=== PATIENT | female | born 1945 | race Caucasian/White ===

== ENCOUNTER 2016-10-03 21:32 | Emergency (ER) | payer MEDICARE, OTHER ==
--- NOTE | 2016-10-03 22:14 | ED Physician Documentation ---
PD HPI NVD - Stated complaint Stated Complaint: REACTION MEDS - Chief complaint Chief Complaint: Abd Pain - History obtained from History obtained from: Patient - History of Present Illness Timing - onset: Today (this morning about 30-40 minutes after taking first dose of Sertraline, recent Rx for depression. Had abrupt onset of nausea and then repetitive vomiting. Diarrhea soon after onset. Has continued with symptoms through the day, with some lessening late afternoon, but then marked symptoms again this evening. Feeling generally weak.) Timing - duration: Days (2) Timing - details: Abrupt onset, Still present Associated symptoms: Dizzy, Loss of appetite. No: Fever, Abdominal pain, Hematemesis, Vaginal dc Contributing factors: Other (new Rx with first dose 30-40 minutes prior to onset of symptoms.). No: Sick contact, Bad food, Travel, Recent antibiotics Improved by: No: Eating, Vomiting Worsened by: Eating. No: Moving Similar symptoms before: Has not had sx before Recently seen: Clinic Review of Systems Constitutional: reports: Chills, Myalgias. denies: Fever Nose: denies: Rhinorrhea / runny nose, Congestion Throat: denies: Sore throat Cardiac: denies: Chest pain / pressure, Palpitations Respiratory: denies: Dyspnea, Cough GI: reports: Nausea, Vomiting, Diarrhea. denies: Abdominal Pain, Hematemesis, Bloody / black stool : denies: Dysuria, Frequency Skin: denies: Rash, Lesions Neurologic: reports: Generalized weakness, Near syncope. denies: Focal weakness , Numbness, Syncope Psychiatric: denies: Suicidal, Anxiety Endocrine: denies: Weight loss PD PAST MEDICAL HISTORY - Past Medical History Cardiovascular: None Respiratory: COPD Neuro: None Endocrine/Autoimmune: None GI: None [employer]INTE[employer]CE: Breast cancer : None HEENT: Chronic vision loss Psych: Depression Musculoskeletal: Osteoporosis Derm: None Other Past Medical History: Had Chemotherapy for breast cancer in 1999 - Past Surgical History Past Surgical History: Yes General: Colonoscopy /[employer]INTENANCE: Other HEENT: Cataracts - Present Medications Home Medications: Ambulatory Orders Medication Instructions Recorded Confirmed Alprazolam [Xanax] 0.25 mg PO DAILY 05/19/13 10/03/16 Calcium Carbonate [Calcium] 1,200 mg PO DAILY 05/19/13 10/03/16 Cholecalciferol (Vitamin D3) 1,600 mg PO DAILY 05/19/13 10/03/16 [Vitamin D] Eszopiclone [Lunesta] 1 mg PO DAILY 05/19/13 10/03/16 Lactobacillus Acidophilus 1 each PO DAILY 05/19/13 10/03/16 [Acidophilus] Latanoprost [Xalatan] 2.5 ml OP DAILY 05/19/13 10/03/16 Timolol 0.5% Ophth Drops [Timoptic] 1 drops LEFTEYE DAILY 05/19/13 10/03/16 Ubidecarenone [Co Q-10] 10 mg PO 05/19/13 05/19/13 Vitamin B Complex [B Complex] 1 each PO DAILY 05/19/13 10/03/16 Diphenoxylate/Atropine [Lomotil] 1 each PO QID #20 tablet 10/03/16 Ondansetron Odt [Zofran] 4 mg TL Q6H PRN #15 tablet 10/03/16 - Allergies Allergies/Adverse Reactions: Allergies Allergy/AdvReac Type Severity Reaction Status Date / Time No Known Drug Allergies Allergy Verified 08/17/13 13:12 - Social History Does the pt smoke?: Yes Smoking Status: Current every day smoker Does the pt drink ETOH?: No Does the pt have substance abuse?: Yes - Immunizations Immunizations are current?: No - POLST Patient has POLST: No PD ED PE NORMAL - Vitals Vital signs reviewed: Yes - General General: Alert and oriented X 3, Well developed/nourished, Other (appears uncomfortable due to nausea. ) - HEENT HEENT: PERRL (nonicteric), Ears normal, Pharynx benign - Neck Neck: Supple, no meningeal sign, No adenopathy - Cardiac Cardiac: RRR, No murmur - Respiratory Respiratory: Clear bilaterally - Abdomen Abdomen: Soft, Non tender, Non distended, No organomegaly. 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 No: Normal affect (somewhat flat) Results - Vitals Vitals: Vital Signs - 24 hr 10/03/16 10/03/16 10/04/16 21:38 22:30 00:29 Temperature 35.8 C L Heart Rate 78 82 74 Respiratory 18 16 16 Rate Blood Pressure 146/80 H 138/78 H 143/72 H O2 Saturation 100 97 98 Oxygen O2 Source Room air - Labs Labs: Laboratory Tests 10/03/16 23:15 Sodium 124 L Potassium 3.7 Chloride 91 L Carbon Dioxide 22 Anion Gap 11.0 BUN 10 Creatinine 0.4 Estimated GFR (MDRD) 157 Glucose 113 H Calcium 9.2 Magnesium 1.6 L Total Bilirubin 0.9 AST 26 ALT 21 Alkaline Phosphatase 39 L Total Protein 7.2 Albumin 4.4 Globulin 2.8 Albumin/Globulin Ratio 1.6 Lipase 29 PD MEDICAL DECISION MAKING - ED course Complexity details: re-evaluated patient (Improving symptoms and given IV fluids as well. Would like to try going home. Sent with some Zofran. ), considered differential (onset N/V/D shortly after taking new med. Epocrates lists N/V/D as possible side effects. The timing is certain c/w side effect of the med. She is given IV fluids and meds to improve her here. Will have her hold the Sertraline. ), d/w patient Departure - Departure Clinical Impression: Medication side effects, Hyponatremia, Dehydration Vomiting Qualifiers: Vomiting type: unspecified Vomiting Intractability: non-intractable Nausea presence: with nausea Qualified Code(s): R11.2 - Nausea with vomiting, unspecified Diarrhea Qualifiers: Diarrhea type: unspecified type Qualified Code(s): R19.7 - Diarrhea, unspecified Condition: Stable Record reviewed to determine appropriate education?: Yes Instructions: ED Diet Vomiting Diarrhea Follow-Up: Luis Melara MD [Primary Care Provider] - Prescriptions: Diphenoxylate/Atropine [Lomotil] 1 each PO QID #20 tablet Ondansetron Odt [Zofran] 4 mg TL Q6H PRN #15 tablet PRN Reason: Nausea / Vomiting Comments: Small frequent fluids. Zofran for nausea as needed, Lomotil for diarrhea as needed. Hold the Sertraline. Follow up PMD.
[2016-10-03] MEDS ORDERED: DIPHENOX/ATROPINE 2.5/0.025 MG TABLET PO STA (22:32)
[2016-10-03] MEDS ORDERED: SODIUM CHLORIDE 0.9% 1,000 ML IV ONE ×2 (22:32→22:33)
[2016-10-03] MEDS ORDERED: ONDANSETRON 4 MG/2 ML VIAL IVP STA (22:32)
[2016-10-03] MEDS ORDERED: ONDANSETRON 4 MG/2 ML VIAL ONE (23:26)
[2016-10-03] MEDS ORDERED: DIPHENOX/ATROPINE 2.5/0.025 MG TABLET PO ONE ×2 (23:27→23:34)
[2016-10-03 23:34] LABS: ALBUMIN/GLOBULIN RATIO 1.6 (1.0-2.2); BILIRUBIN,TOTAL 0.9 mg/dL (0.2-1.0); CALCIUM 9.2 mg/dL (8.5-10.3); CREATININE 0.4 mg/dL (0.4-1.0); MAGNESIUM 1.6 mg/dL (1.7-2.8); POTASSIUM 3.7 mmol/L (3.5-5.0); TOTAL PROTEIN 7.2 g/dL (6.7-8.2)
[2016-10-03] MEDS ORDERED: ONDANSETRON ODT 4 MG Prepack 2 TL PRN (23:45)
[2016-10-04] MEDS ORDERED: ONDANSETRON 4 MG/2 ML VIAL IVP STA (00:27)
[2016-10-04] MEDS ORDERED: ONDANSETRON ODT 4 MG Prepack 2 TL ONE (00:27)
[2016-10-04] MEDS ORDERED: ONDANSETRON 4 MG/2 ML VIAL ONE (00:31)
[2016-10-04 01:27] VITALS: BP 134/72
== END 2016-10-04 01:42 | disposition home or self-care (01) ==
LOC: ED 21:32
DX: R11.2 Nausea with vomiting, unspecified (principal); R19.7 Diarrhea, unspecified; T43.225A Adverse effect of selective serotonin reuptake inhibitors, initial encounter; E87.1 Hypo-osmolality and hyponatremia; E86.0 Dehydration; F17.200 Nicotine dependence, unspecified, uncomplicated; Z85.3 Personal history of malignant neoplasm of breast
CPT/HCPCS: 36415; 80053; 83690; 83735; 96374; 96376; 99283; 99284; A9270

== ENCOUNTER 2016-10-07 14:06 | Outpatient (CLI) | payer MEDICARE, OTHER ==
[2016-10-07 14:34] LABS: CALCIUM 9.3 mg/dL (8.5-10.3); CREATININE 0.5 mg/dL (0.4-1.0); POTASSIUM 4.2 mmol/L (3.5-5.0)
== END 2016-10-07 14:07 | disposition home or self-care (01) ==
LOC: LAB 14:06
PROVIDERS: ATTEND Family Medicine
DX: E87.1 Hypo-osmolality and hyponatremia (principal)
CPT/HCPCS: 36415; 80048

== ENCOUNTER 2017-01-16 09:43 | Day surgery (SDC) | payer MEDICARE, OTHER ==
[2017-01-16] MEDS ORDERED: LACTATED RINGERS 1,000 ML IV ONE (10:30)
--- NOTE | 2017-01-16 10:54 | HISTORY & PHYSICAL EXAMINATION ---
HPI - History of Present Illness HPI Comment/Other: Patient here for colonoscopy for family history of colon cancer in mother and father above the age of 70. Current Meds: TIMOLOL MALEATE 0.5 % SOLG (TIMOLOL MALEATE) Instill one drop both eyes twice daily FOSAMAX 70 MG TABS (ALENDRONATE SODIUM) Take one tablet by mouth weekly; take on empty stomach with water and remain upright after taking medication for 30 minutes; eat breakfast; take other medications B COMPLEX TABS (B COMPLEX VITAMINS) Take one tablet once daily LUNESTA 2 MG TABS (ESZOPICLONE) Take one tablet by mouth at bedtime as needed for sleep ALPRAZOLAM 0.25 MG TABS (ALPRAZOLAM) One tablet 3 times daily as needed for anxiety XALATAN 0.005 % SOLN (LATANOPROST) use QD VITAMIN D 1000 UNIT TABS (CHOLECALCIFEROL) once daily for vit D deficiency CALTRATE 600 PLUS-VIT D TABS (CALCIUM-VITAMIN D TABS) one po twice a day Allergies: ZOLOFT (Critical) Past Medical History: Reviewed history from 11/15/2008 and no changes required: R/temporal headaches that are not accompanied with photophobia, phonophobia, emesis or as her previous hx of migraines. L/breast cancer w/lumpectomy in 1999. lymph nodes negative. Tx'd with [address] Dr[address] Landry. Also received some radiation therapy early on. Since chemo has had problems with chronic tinnitus, chronic leukopenia w/white counts around 3000 w/some mild anemia. Required neupogen during chemo, but not since. Glaucoma and is on drops. Insomnia that patient associates w/when counts are low or if feeling depressed. Never been suicidal. Snores but no apnea. Childbirth Tobacco user and has quit several times but continues to start up again. Negative colonoscopy [address] Gardner Emphysema Depression Anxiety Panic Attacks Claustrophobia Past Surgical History: Reviewed history from 11/15/2008 and no changes required: L/lumpectomy L/rotator cuff arthroscopic repair Family History Summary: Reviewed history Last on 10/31/2016 and no changes required:11/26/2016 Mother (biol.) - Has a mother - Entered On: 04/12/2014 Mother (biol.) - Has Family History of Colon Cancer - Entered On: 11/26/2016 Father () - Has Family History of Colon Cancer - Entered On: 11/26/2016 General Comments - FH: Father: colon cancer Mother: colon cancer Siblings: grandfather with colon cancer, grandfather with esophageal cancer, 1 aunt with breast cancer Social History: Reviewed history from 01/10/2009 and no changes required: Marital Status: Children: 2 Occupation: no service, various occupations. Risk Factors: Smoked Tobacco Use: Current every day smoker Cigarettes: Yes -- 1/2 pack(s) per day, Year started: 1967 Counseled to quit/cut down: yes Drug use: no Caffeine use: 0 drinks per day Alcohol use: no Exercise: no Previous Tobacco Use: Signed On - 02/19/2016 Smoked Tobacco Use: Current every day smoker Cigarettes: Yes -- 1/2 pack(s) per day, Year started: 1966 Counseled to quit/cut down: yes Drug use: no Caffeine use: 0 drinks per day Problems were reviewed with the patient during this visit. Medications were reviewed with the patient during this visit. Allergies were reviewed with the patient during this visit. Allergies: ZOLOFT (Critical) Physical Exam General: well developed, well nourished, in no acute distress Lungs: clear bilaterally to A & P Heart: regular rate and rhythm, S1, S2 without murmurs, rubs, gallops, or clicks Abdomen: bowel sounds positive; abdomen soft and non-tender without masses, organomegaly, or hernias noted Pulses: pulses normal in all 4 extremities Extremities: no clubbing, cyanosis, edema, or deformity noted with normal full range of motion of all joints Cervical Nodes: no significant adenopathy Psych: alert and cooperative; normal mood and affect; normal attention span and concentration Impression & Recommendations: Problem # 1: Screening for malignant neoplasm, colon (ICD-V76.51) (QMD56-D41.11 ) Patient vomited second dose of prep but had multiple clear BM's this am. Will attempt colonoscopy but if visualization is poor will have to repeat. PMH/PSH - Past Medical History Cardiovascular: positive: None Respiratory: positive: None, COPD Neuro: positive: None Endocrine/Autoimmune: positive: None GI: positive: None INSIDE SALES LEAD: positive: Breast cancer : positive: None HEENT: positive: Glaucoma Psych: positive: Depression, Anxiety Musculoskeletal: positive: Osteoporosis Derm: positive: None MRSA Hx?: No - Past Surgical History General: positive: Colonoscopy Ortho: positive: Arthroscopic surgery /INSIDE SALES LEAD: positive: Other HEENT: positive: Cataracts Social & Family Hx - Social History Does the pt smoke?: Yes Smoking Status: Current every day smoker Does the pt drink ETOH?: No Does the pt have substance abuse?: Yes - POLST Patient has POLST: No Meds/Allgy - Home Medications Home Medications: Ambulatory Orders Medication Instructions Recorded Confirmed Alprazolam [Xanax] 0.25 mg PO DAILY 05/19/13 10/03/16 Calcium Carbonate [Calcium] 1,200 mg PO DAILY 05/19/13 10/03/16 Cholecalciferol (Vitamin D3) 1,600 mg PO DAILY 05/19/13 10/03/16 [Vitamin D] Eszopiclone [Lunesta] 1 mg PO DAILY 05/19/13 10/03/16 Lactobacillus Acidophilus 1 each PO DAILY 05/19/13 10/03/16 [Acidophilus] Latanoprost [Xalatan] 2.5 ml OP DAILY 05/19/13 10/03/16 Timolol 0.5% Ophth Drops [Timoptic] 1 drops LEFTEYE DAILY 05/19/13 10/03/16 Ubidecarenone [Co Q-10] 10 mg PO 05/19/13 05/19/13 Vitamin B Complex [B Complex] 1 each PO DAILY 05/19/13 10/03/16 Diphenoxylate/Atropine [Lomotil] 1 each PO QID #20 tablet 10/03/16 Ondansetron Odt [Zofran] 4 mg TL Q6H PRN #15 tablet 10/03/16 - Allergies Allergies/Adverse Reactions: Allergies Allergy/AdvReac Type Severity Reaction Status Date / Time No Known Drug Allergies Allergy Verified 08/17/13 13:12 Exam - Vital Signs Vital Signs: Vital Signs x48h Temp Pulse Resp BP Pulse Ox 01/16/17 10:05 36.6 C 105 H 16 135/67 H 100
[2017-01-16] MEDS ORDERED: fentaNYL 100 MCG/2 ML VIAL IVP ONE (11:00)
[2017-01-16] MEDS ORDERED: MIDAZOLAM 2 MG/2 ML VIAL IVP ONE (11:00)
[2017-01-16 12:27] VITALS: BP 110/82
== END 2017-01-16 09:44 | disposition home or self-care (01) ==
LOC: SDS 09:43
PROVIDERS: ATTEND Surgery
PROC: 0DJD8ZZ Inspection of Lower Intestinal Tract, Via Natural or Artificial Opening Endoscopic (ICD-10-PCS; principal; 2017-01-16 11:00)
DX: Z12.11 Encounter for screening for malignant neoplasm of colon (principal); Z80.0 Family history of malignant neoplasm of digestive organs; J43.9 Emphysema, unspecified; F17.210 Nicotine dependence, cigarettes, uncomplicated; F32.9 Major depressive disorder, single episode, unspecified; F41.9 Anxiety disorder, unspecified
CPT/HCPCS: G0105; J7120

== ENCOUNTER 2017-01-23 13:17 | Outpatient (CLI) | payer MEDICARE, OTHER ==
[2017-01-23 14:02] LABS: BASOPHILS % (AUTO) 1.1 %; EOSINOPHILS # (AUTO) 0.1 10^3/uL (0.0-0.7); EOSINOPHILS % (AUTO) 3.7 %; HCT - HEMATOCRIT 39.8 % (37.0-47.0); HGB - HEMOGLOBIN 13.6 g/dL (12.0-16.0); LYMPHOCYTES # (AUTO) 1.6 10^3/uL (1.5-3.5); LYMPHOCYTES % (AUTO) 39.4 %; MEAN CORPUSCULAR HEMOGLOBIN 34.9 pg (27.0-31.0); MEAN CORPUSCULAR HGB CONC 34.2 g/dL (32.0-36.0); MEAN CORPUSCULAR VOLUME 102.3 fL (81.0-99.0); MEAN PLATELET VOLUME 7.6 fL (7.9-10.8); MONOCYTES # (AUTO) 0.4 10^3/uL (0.0-1.0); MONOCYTES % (AUTO) 10.7 %; NEUTROPHILS # (AUTO) 1.8 10^3/uL (1.5-6.6); NEUTROPHILS % (AUTO) 45.1 %; RED BLOOD COUNT 3.89 10^6/uL (4.20-5.40); RED CELL DISTRIBUTION WIDTH 12.6 % (12.0-15.0)
[2017-01-23 14:38] LABS: ALBUMIN/GLOBULIN RATIO 1.3 (1.0-2.2); BILIRUBIN,TOTAL 0.6 mg/dL (0.2-1.0); CREATININE 0.6 mg/dL (0.4-1.0); TOTAL PROTEIN 6.8 g/dL (6.7-8.2)
== END 2017-01-23 13:18 | disposition home or self-care (01) ==
LOC: LAB 13:17
PROVIDERS: ATTEND Family Medicine
DX: E87.1 Hypo-osmolality and hyponatremia (principal); J44.9 Chronic obstructive pulmonary disease, unspecified; Z72.0 Tobacco use; F32.9 Major depressive disorder, single episode, unspecified
CPT/HCPCS: 36415; 80053; 85025

== ENCOUNTER 2017-07-18 13:20 | Outpatient (CLI) | payer MEDICARE, OTHER ==
[2017-07-18 13:36] LABS: BASOPHILS % (AUTO) 0.6 %; EOSINOPHILS # (AUTO) 0.1 10^3/uL (0.0-0.7); EOSINOPHILS % (AUTO) 2.7 %; HGB - HEMOGLOBIN 14.1 g/dL (12.0-16.0); LYMPHOCYTES # (AUTO) 1.3 10^3/uL (1.5-3.5); LYMPHOCYTES % (AUTO) 34.1 %; MEAN CORPUSCULAR HEMOGLOBIN 35.2 pg (27.0-31.0); MEAN CORPUSCULAR HGB CONC 35.2 g/dL (32.0-36.0); MEAN CORPUSCULAR VOLUME 99.9 fL (81.0-99.0); MEAN PLATELET VOLUME 7.2 fL (7.9-10.8); MONOCYTES # (AUTO) 0.4 10^3/uL (0.0-1.0); NEUTROPHILS # (AUTO) 1.9 10^3/uL (1.5-6.6); NEUTROPHILS % (AUTO) 50.6 %; PLT - PLATELET COUNT 285 10^3/uL (130-450); RED CELL DISTRIBUTION WIDTH 12.3 % (12.0-15.0); WHITE BLOOD COUNT 3.7 x10^3/uL (4.8-10.8)
[2017-07-18 14:01] LABS: ALBUMIN 4.2 g/dL (3.2-5.5); ALBUMIN/GLOBULIN RATIO 1.6 (1.0-2.2); ALKALINE PHOSPHATASE 36 IU/L (42-121); ALT ALANINE AMINOTRANSFERASE 16 IU/L (10-60); AST ASPARTATE AMINOTRANSFERASE 24 IU/L (10-42); BILIRUBIN,TOTAL 0.7 mg/dL (0.2-1.0); BUN - BLOOD UREA NITROGEN 8 mg/dL (6-20); CARBON DIOXIDE - CO2 28 mmol/L (21-32); CHLORIDE 94 mmol/L (101-111); CHOL/HDL RATIO 2.5 (<4.4); CHOLESTEROL 225 mg/dL; CREATININE 0.5 mg/dL (0.4-1.0); GFR - MDRD 121 (>89); GLUCOSE 101 mg/dL (70-100); HDL CHOLESTEROL 89 mg/dL; LDL CHOLESTEROL,CALCULATED 122 mg/dL; LDL/HDL RATIO 1.4 (<4.4); SODIUM 129 mmol/L (135-145); TOTAL PROTEIN 6.9 g/dL (6.7-8.2); VLDL CHOLESTEROL 14 mg/dL
== END 2017-07-18 13:21 | disposition home or self-care (01) ==
LOC: LAB 13:20
PROVIDERS: ATTEND Family Medicine
DX: E55.9 Vitamin D deficiency, unspecified (principal); E78.5 Hyperlipidemia, unspecified
CPT/HCPCS: 36415; 80053; 80061; 82306; 83721; 85025

== ENCOUNTER 2017-08-20 12:50 | Outpatient (CLI) | payer MEDICARE, OTHER ==
--- NOTE | 2017-08-21 15:05 | Mammography Report ---
DIGITAL SCREENING MAMMOGRAM: 08/20/2017 CLINICAL INDICATION: A 72-year-old with personal history of left breast cancer, status post lumpectomy and chemoradiation. COMPARISON: 06/2015, 06/2014, 05/2013, 03/2012, 02/2011, 02/2010. TECHNIQUE: Routine CC and MLO projections were obtained of the breasts. FINDINGS: The breasts demonstrate heterogeneously dense fibroglandular parenchyma bilaterally. Coarse and punctate, typically benign calcifications are present. Postoperative and posttreatment changes in the left breast are stable. No suspicious masses, clustered microcalcifications, or regions of architectural distortion are identified. IMPRESSION: BENIGN FINDINGS. RECOMMENDATION: Routine annual screening unless otherwise clinically indicated. BIRADS CATEGORY 2 - BENIGN FINDINGS. STANDARD QUALIFYING STATEMENTS: 1. This examination was reviewed with the aid of Computer-Aided Detection (CAD). 2. A negative or benign imaging report should not delay biopsy if clinically suspicious findings are present. Consider surgical consultation if warranted. More than 5% of cancers are not identified by imaging. 3. Dense breasts may obscure an underlying neoplasm. TD: 08/21/2017 15:04
== END 2017-08-20 12:51 | disposition home or self-care (01) ==
LOC: DI 12:50
PROVIDERS: ATTEND Family Medicine
DX: Z12.31 Encounter for screening mammogram for malignant neoplasm of breast (principal); Z85.3 Personal history of malignant neoplasm of breast
CPT/HCPCS: 77067

== ENCOUNTER 2017-08-20 12:50 | Outpatient (CLI) | payer MEDICARE, OTHER ==
--- NOTE | 2017-08-21 15:42 | DEXA Report ---
DEXA SCAN: 08/20/2017 CLINICAL INDICATION: Osteoporosis. TECHNIQUE: Dual energy x-ray absorptiometry (DXA) was performed on a [employer] system. Regions measured are the AP spine, femoral neck, and, if needed, forearm. COMPARISON: None. In accordance with the International Society for Clinical Densitometry (ISCD) guidelines, data from previous exams may be reanalyzed using current recommendations and techniques. This is done to allow a more accurate basis for comparison with the current study. FINDINGS Data for the lumbar spine is as follows: REGION BMD (g/cm/cm) T-SCORE Z-SCORE L1 0.630 -4.2 -1.9 L2 0.670 -4.4 -2.1 L3 0.788 -3.4 -1.1 L4 0.879 -2.7 -0.4 L1-L4 0.749 -3.6 -1.3 NOTE: All evaluable vertebrae are used for classification. Data for the hip is as follows: REGION BMD (g/cm/cm) T-SCORE Z-SCORE Neck 0.676 -2.6 -0.4 TOTAL 0.627 -3.0 -1.0 NOTE: The femoral neck or total proximal femur, whichever is lowest, is used for classification. IMPRESSION WHO CLASSIFICATION BASED ON THE INTERNATIONAL REFERENCE STANDARD IS OSTEOPOROSIS. FRACTURE RISK IS HIGH. RECOMMENDATION: Patients with diagnosis of osteoporosis or osteopenia should have regular bone mineral density assessment. For those eligible for Medicare, routine testing is allowed once every 2 years. Testing frequency can be increased for patients who have rapidly progressing disease or for those who are receiving medical therapy to restore bone mass. COMMENT World Health Organization (WHO) definitions for osteoporosis and osteopenia: NORMAL BMD: T-score at 1.0 or higher, fracture risk is low. OSTEOPENIA BMD: T-score between 1.0 and -2.5, fracture risk is increased. OSTEOPOROSIS BMD: T-score at 2.5 or lower, fracture risk high. National Osteoporosis Foundation recommends: 1. Obtain adequate dietary calcium (at least 1200 mg per day) and vitamin D (400 -800 international units per day). 2. Participate, as appropriate, in regular weightbearing and muscle- strengthening exercise. 3. Avoid tobacco use and reduce alcohol and caffeine intake. 4. For more detailed information see the website at www.NOF.org. TD: 08/20/2017 14:58 MTDD
== END 2017-08-20 12:51 | disposition home or self-care (01) ==
LOC: DI 12:50
PROVIDERS: ATTEND Family Medicine
DX: M81.0 Age-related osteoporosis without current pathological fracture (principal)
CPT/HCPCS: 77080

== ENCOUNTER 2018-07-17 13:32 | Outpatient (CLI) | payer MEDICARE, OTHER ==
[2018-07-17 14:10] LABS: BASOPHILS % (AUTO) 0.6 %; EOSINOPHILS # (AUTO) 0.1 10^3/uL (0.0-0.7); EOSINOPHILS % (AUTO) 2.7 %; HGB - HEMOGLOBIN 13.8 g/dL (12.0-16.0); LYMPHOCYTES # (AUTO) 1.4 10^3/uL (1.5-3.5); MEAN CORPUSCULAR HEMOGLOBIN 35.6 pg (27.0-31.0); MEAN CORPUSCULAR HGB CONC 35.3 g/dL (32.0-36.0); MEAN PLATELET VOLUME 7.7 fL (7.9-10.8); MONOCYTES # (AUTO) 0.4 10^3/uL (0.0-1.0); MONOCYTES % (AUTO) 9.3 %; NEUTROPHILS # (AUTO) 2.4 10^3/uL (1.5-6.6); NEUTROPHILS % (AUTO) 55.4 %; PLT - PLATELET COUNT 292 10^3/uL (130-450); RED BLOOD COUNT 3.88 10^6/uL (4.20-5.40); RED CELL DISTRIBUTION WIDTH 12.4 % (12.0-15.0); WHITE BLOOD COUNT 4.3 x10^3/uL (4.8-10.8)
[2018-07-17 14:13] LABS: ALBUMIN 4.2 g/dL (3.2-5.5); ALBUMIN/GLOBULIN RATIO 1.4 (1.0-2.2); ALKALINE PHOSPHATASE 38 IU/L (42-121); ALT ALANINE AMINOTRANSFERASE 15 IU/L (10-60); AST ASPARTATE AMINOTRANSFERASE 19 IU/L (10-42); BILIRUBIN,TOTAL 0.6 mg/dL (0.2-1.0); BUN - BLOOD UREA NITROGEN 8 mg/dL (6-20); CALCIUM 9.1 mg/dL (8.5-10.3); CARBON DIOXIDE - CO2 28 mmol/L (21-32); CHLORIDE 98 mmol/L (101-111); CHOL/HDL RATIO 2.5 (<4.4); CHOLESTEROL 229 mg/dL; CREATININE 0.6 mg/dL (0.4-1.0); GFR - MDRD 98 (>89); GLUCOSE 99 mg/dL (70-100); HDL CHOLESTEROL 92 mg/dL; LDL CHOLESTEROL,CALCULATED 117 mg/dL; LDL/HDL RATIO 1.3 (<4.4); SODIUM 133 mmol/L (135-145); TOTAL PROTEIN 7.2 g/dL (6.7-8.2); VLDL CHOLESTEROL 20 mg/dL
== END 2018-07-17 13:33 | disposition home or self-care (01) ==
LOC: LAB 13:32
PROVIDERS: ATTEND Family Medicine
DX: E55.9 Vitamin D deficiency, unspecified (principal); E78.5 Hyperlipidemia, unspecified
CPT/HCPCS: 36415; 80053; 80061; 82306; 83721; 85025

== ENCOUNTER 2018-08-15 12:20 | Outpatient (CLI) | payer MEDICARE, OTHER ==
--- NOTE | 2018-08-16 10:11 | Ultrasound Report ---
Reason: RUQ PAIN Procedure Date: 08/15/2018 Accession Number: [id number] / [id number] Procedure: US - Abdomen Complete CPT Code: FULL RESULT: EXAM: ABDOMEN ULTRASOUND EXAM DATE: 08/15/2018 01:00 PM. CLINICAL HISTORY: Right upper quadrant chronic abdominal pain. COMPARISON: None. TECHNIQUE: Real-time scanning was performed with static images obtained. FINDINGS: Liver: Normal in size and echotexture. 13.7 cm. Main portal vein flow: Hepatopetal. Gallbladder: Normal. No stones, wall thickening, or sonographic Mcallister's sign. Biliary System: Common bile duct measures 6 mm. No intrahepatic or extrahepatic ductal dilatation. Pancreas: Visualized portion is unremarkable. Kidneys: Right: 10.0 cm longitudinally. Normal. No contour-deforming mass, stones, or hydronephrosis. A mid renal cyst measures 1.3 cm. Left: 10.4 cm longitudinally. Normal. No contour-deforming mass, stones, or hydronephrosis. Spleen: 6.8 cm. Normal in size and echotexture. Aorta and Inferior Vena Cava: No aneurysm identified. Calcific plaque noted. Other: None. IMPRESSION: No acute disease identified. Normal gallbladder. RADIA
== END 2018-08-15 12:21 | disposition home or self-care (01) ==
LOC: DI 12:20
PROVIDERS: ATTEND Family Medicine
DX: R10.11 Right upper quadrant pain (principal)
CPT/HCPCS: 76700

== ENCOUNTER 2018-09-04 13:39 | Outpatient (CLI) | payer MEDICARE, OTHER ==
--- NOTE | 2018-09-07 08:52 | Mammography Report ---
Reason: SCREENING MAMMOGRAM FOR BREAST CANCER Procedure Date: 09/04/2018 Accession Number: [id number] / [id number] Procedure: FORREST - Screening Mammo w/[facility] CPT Code: FULL RESULT: EXAM: Screening Mammo w/[facility] DATE: 09/04/2018 2:15 PM CLINICAL HISTORY: Screening encounter. Personal history of left breast cancer status post lumpectomy and chemoradiation in 1998. TECHNIQUE: (B) - Bilateral CC and MLO views were obtained. COMPARISON: 08/10/2017 through 05/07/2013. PARENCHYMAL PATTERN: (D) - The breast(s) demonstrate(s) heterogeneously dense fibroglandular parenchyma. FINDINGS: Postsurgical and posttreatment changes in the left breast appear stable. Coarse typically benign calcifications are seen in the right breast. There are no suspicious masses, calcifications, or areas of distortion. IMPRESSION: Benign findings. BI-RADS category 2. RECOMMENDATION: (ANNUAL) - Recommend routine annual screening mammography. BI-RADS CATEGORY: (2) - Benign Findings. STANDARD QUALIFYING STATEMENTS: 1. This examination was not reviewed with the aid of Computer-Aided Detection (CAD). 2. A negative or benign imaging report should not preclude biopsy if clinically suspicious findings are present. 3. Dense breasts may obscure an underlying neoplasm. 4. This examination was reviewed with the aid of 3D breast imaging (tomosynthesis).
== END 2018-09-04 13:40 | disposition home or self-care (01) ==
LOC: DI 13:39
PROVIDERS: ATTEND Family Medicine
DX: Z12.31 Encounter for screening mammogram for malignant neoplasm of breast (principal); Z85.3 Personal history of malignant neoplasm of breast
CPT/HCPCS: 77063; 77067

== ENCOUNTER 2019-11-04 16:12 | Outpatient (CLI) | payer MEDICARE, OTHER ==
--- NOTE | 2019-11-04 17:32 | MRI Report ---
PROCEDURE: Pelvis W/O INDICATIONS: STRAIN OF MSL/FASC/TND POST GRP AT THI LEV, UNSP T TECHNIQUE: Noncontrast coronal T1 spin echo and STIR through the bony pelvis. Sagittal T2 FSE with fat saturati on, oblique axial PD FSE and T2 FSE with fat saturation through the symphysis pubis. COMPARISON: None. FINDINGS: Image quality: Excellent. Tendons and muscles: No pelvic muscle or tendon signal abnormality is seen. The gluteus medius and mi nimus tendons appear intact, without associated muscle atrophy. The iliopsoas tendon appears intact, without adjacent bursal fluid collections. The origin of the hamstring tendons are intact at the is chial tuberosities. Bony structures: There is bilateral mild hip joint osteoarthritis with joint space narrowing. No evid ence of avascular necrosis of femoral head. No pelvic or hip fracture. No dislocation. Lobulated cyst ic area involving lower sacrum measures 1.5 x 1.2 cm x 1.5 in size is seen which may represent perine ural cyst incompletely evaluated on this study. Soft tissues: No gross pelvic soft tissue abnormality. No free fluid is seen. No evidence of bowel ob struction. Bladder wall thickness is normal. IMPRESSION: 1. No signal abnormality is seen in pelvic muscle or soft tissue. 2. Mild bilateral hip joint osteoarthritis. No evidence of avascular necrosis of femoral head. 3. Cystic area involving lower sacrum as described above, incompletely evaluated on this study and ma y represent perineural cyst. Reviewed by: Madhu Hogan MD on 11/04/2019 5:31 PM PDT Approved by: Madhu Hogan MD on 11/04/2019 5:31 PM PDT Station ID: [id number]
== END 2019-11-04 16:13 | disposition home or self-care (01) ==
LOC: DI 16:12
PROVIDERS: ATTEND Orthopaedic Surgery
DX: M16.0 Bilateral primary osteoarthritis of hip (principal); R93.89 Abnormal findings on diagnostic imaging of other specified body structures
CPT/HCPCS: 72195

== ENCOUNTER 2019-11-16 13:58 | Outpatient (CLI) | payer MEDICARE, OTHER ==
--- NOTE | 2019-11-16 17:36 | MRI Report ---
PROCEDURE: Pelvis W/O INDICATIONS: PAIN TECHNIQUE: Noncontrast coronal T1 spin echo and STIR through the bony pelvis. Sagittal T2 FSE with fat saturati on, oblique axial PD FSE and T2 FSE with fat saturation through the symphysis pubis. COMPARISON: 11/04/2019. FINDINGS: Image quality: Excellent. Tendons and muscles: No pelvic muscle or tendon signal abnormality is seen. The gluteus medius and mi nimus tendons appear intact, without associated muscle atrophy. The iliopsoas tendon appears intact, without adjacent bursal fluid collections. The origin of the hamstring tendons are intact at the is chial tuberosities. Bony structures: There is bilateral mild hip joint osteoarthritis with joint space narrowing. No evid ence of avascular necrosis of femoral head. No pelvic or hip fracture. No dislocation. Multiple bilat eral perineural cysts are seen in bilateral sacral region measures up to 1 x 1.7 x 2.2 cm in size ant erior to the distal sacrum slightly to the right of midline. Soft tissues: No gross pelvic soft tissue abnormality. No free fluid is seen. No evidence of bowel ob struction. Bladder wall thickness is normal. IMPRESSION: 1. Previously described cystic areas partially evaluated in visualized portion of the sacrum represen ts bilateral sacral perineural cysts and measures up to 1 x 1.7 x 2.2 cm in size. 2. No signal abnormality is seen in pelvic muscle or soft tissue. 3. Mild bilateral hip joint osteoarthritis. No evidence of avascular necrosis of femoral head. Reviewed by: Madhu Hogan MD on 11/16/2019 5:35 PM PDT Approved by: Madhu Hogan MD on 11/16/2019 5:35 PM PDT Station ID: [id number]
== END 2019-11-16 13:59 | disposition home or self-care (01) ==
LOC: DI 13:58
PROVIDERS: ATTEND Orthopaedic Surgery
DX: M71.38 Other bursal cyst, other site (principal); M16.0 Bilateral primary osteoarthritis of hip
CPT/HCPCS: 72195

== ENCOUNTER 2020-07-19 13:31 | Outpatient (CLI) | payer MEDICARE, OTHER ==
[2020-07-19 13:53] LABS: BASOPHILS % (AUTO) 0.7 %; EOSINOPHILS # (AUTO) 0.1 10^3/uL (0.0-0.7); EOSINOPHILS % (AUTO) 1.5 %; HCT - HEMATOCRIT 41.4 % (37.0-47.0); HGB - HEMOGLOBIN 14.5 g/dL (12.0-16.0); LYMPHOCYTES # (AUTO) 1.2 10^3/uL (1.5-3.5); LYMPHOCYTES % (AUTO) 25.8 %; MEAN CORPUSCULAR HEMOGLOBIN 35.5 pg (27.0-31.0); MEAN CORPUSCULAR VOLUME 101.2 fL (81.0-99.0); MEAN PLATELET VOLUME 9.6 fL (7.9-10.8); MONOCYTES # (AUTO) 0.4 10^3/uL (0.0-1.0); MONOCYTES % (AUTO) 9.5 %; NEUTROPHILS # (AUTO) 2.8 10^3/uL (1.5-6.6); NEUTROPHILS % (AUTO) 62.3 %; PLT - PLATELET COUNT 298 10^3/uL (130-450); RED BLOOD COUNT 4.09 10^6/uL (4.20-5.40); RED CELL DISTRIBUTION WIDTH 11.5 % (12.0-15.0); WHITE BLOOD COUNT 4.5 x10^3/uL (4.8-10.8)
[2020-07-19 14:09] LABS: ALBUMIN 4.2 g/dL (3.2-5.5); ALBUMIN/GLOBULIN RATIO 1.4 (1.0-2.2); ALKALINE PHOSPHATASE 41 IU/L (42-121); ALT ALANINE AMINOTRANSFERASE 20 IU/L (10-60); AST ASPARTATE AMINOTRANSFERASE 26 IU/L (10-42); BILIRUBIN,TOTAL 0.8 mg/dL (0.2-1.0); BUN - BLOOD UREA NITROGEN 14 mg/dL (6-20); CALCIUM 9.6 mg/dL (8.5-10.3); CARBON DIOXIDE - CO2 26 mmol/L (21-32); CHLORIDE 91 mmol/L (101-111); CHOL/HDL RATIO 2.5 (<4.4); CHOLESTEROL 231 mg/dL; CREATININE 0.6 mg/dL (0.4-1.0); GFR - MDRD 97 (>89); GLUCOSE 110 mg/dL (70-100); HDL CHOLESTEROL 91 mg/dL; LDL CHOLESTEROL,CALCULATED 125 mg/dL; LDL/HDL RATIO 1.4 (<4.4); POTASSIUM 4.1 mmol/L (3.5-5.0); SODIUM 131 mmol/L (135-145); TOTAL PROTEIN 7.1 g/dL (6.7-8.2); TRIGLYCERIDES 76 mg/dL; VLDL CHOLESTEROL 15 mg/dL
== END 2020-07-19 13:32 | disposition home or self-care (01) ==
LOC: LAB 13:31
PROVIDERS: ATTEND Family Medicine
DX: E78.5 Hyperlipidemia, unspecified (principal)
CPT/HCPCS: 36415; 80053; 80061; 83721; 85025

== ENCOUNTER 2020-09-04 10:51 | Outpatient (CLI) | payer MEDICARE, OTHER ==
--- NOTE | 2020-09-05 13:19 | Mammography Report ---
BILATERAL DIGITAL SCREENING MAMMOGRAM 3D/2D: 09/04/2020 CLINICAL: Routine screening. Comparison is made to exams dated: 09/04/2018 mammogram, 08/20/2017 mammogram, 06/15/2014 mammogram, 06/07 mammogram, and 05/07/2013 mammogram - [facility]. The tissue of both breasts i s predominantly fatty. No significant masses, calcifications, or other findings are seen in either breast. There has been no significant interval change. IMPRESSION: NEGATIVE There is no mammographic evidence of malignancy. A 1 year screening mammogram is recommended. This exam was interpreted at Station ID: [id number]. NOTE: For mammograms, a report in lay terms will be sent to the patient. Approximately 15% of breast malignancies will not be visualized mammographically. In the management of a palpable breast mass, a negative mammogram must not discourage biopsy of a clinically suspicious lesion. Electronically Signed By: Tu Armijo M.D., jr/penrad:09/04/2020 12:02:11 ACR BI-RADS Category 1: Negative 3341F PARENCHYMAL PATTERN: (F) - The breast(s) demonstrate(s) diffuse fatty replacement. BI-RADS CATEGORY: (1) - 1 RECOMMENDATION: (ANNUAL) - Recommend routine annual screening mammography. [id number] 1 year screening LATERALITY: (B)
== END 2020-09-04 10:52 | disposition home or self-care (01) ==
LOC: DI 10:51
DX: Z12.31 Encounter for screening mammogram for malignant neoplasm of breast (principal)

== ENCOUNTER 2020-09-04 10:53 | Outpatient (CLI) | payer MEDICARE, OTHER ==
--- NOTE | 2020-09-04 11:30 | DEXA Report ---
PROCEDURE: Dexa Spine and/or Hip INDICATIONS: OSTEOPOROSIS TECHNIQUE: Dual energy x-ray absorptiometry (DXA) was performed on a [employer] - Eye Tracking System. Regions measur ed are the AP Spine, femoral neck, and if needed forearm. COMPARISON: 08/20/2017. FINDINGS: Lumbar Spine: Bone Mineral Density 0.762 g/cm/cm,T score -3.5, there is interval 1.7% increase in total lumbar s pine bone mineral density since 2018 study. Left Hip: Bone Mineral Density 0.617 g/cm/cm,T score -3.1, there is interval 1.6% decrease in left total hip b one mineral density since 2018 study. Left Femoral Neck: Bone Mineral Density 0.642 g/cm/cm, T score -2.8. (T score greater or equal to -1.0: NORMAL) (T score from -1.1 to -2.4: OSTEOPENIA) (T score less than or equal to -2.5 to: OSTEOPOROSIS) Impression: Osteoporosis. Patients with diagnosis of osteoporosis or osteopenia should have regular bone mineral density assess ment. For those eligible for Medicare, routine testing is allowed once every 2 years. Testing frequ ency can be increased for patients who have rapidly progressing disease or for those who are receivin g medical therapy to restore bone mass. Reviewed by: Madhu Hogan MD on 09/04/2020 11:29 AM PDT Approved by: Madhu Hogan MD on 09/04/2020 11:29 AM PDT Station ID: [id number]
== END 2020-09-04 10:54 | disposition home or self-care (01) ==
LOC: DI 10:53
PROVIDERS: ATTEND Family Medicine
DX: M81.0 Age-related osteoporosis without current pathological fracture (principal)

== ENCOUNTER 2021-01-18 12:20 | Outpatient (CLI) | payer MEDICARE, OTHER ==
[2021-01-18 13:17] LABS: CALCIUM 9.5 mg/dL (8.5-10.3); CREATININE 0.5 mg/dL (0.4-1.0); ESTIMATED AVERAGE GLUCOSE 105 mg/dL (70-100); HEMOGLOBIN A1c% 5.3 % (4.27-6.07); POTASSIUM 4.3 mmol/L (3.5-5.0)
[2021-01-18 13:18] LABS: THYROID STIMULATING HORMONE 0.23 uIU/mL (0.34-5.60)
[2021-01-18 13:19] LABS: FREE T3 3.67 pg/mL (2.5-3.9)
[2021-01-18 13:20] LABS: FREE T4 (FREE THYROXINE) 0.99 ng/dL (0.58-1.64)
== END 2021-01-18 12:21 | disposition home or self-care (01) ==
LOC: LAB 12:20
PROVIDERS: ATTEND Family Medicine
DX: R73.9 Hyperglycemia, unspecified (principal); E87.1 Hypo-osmolality and hyponatremia; R63.6 Underweight
CPT/HCPCS: 36415; 80048; 83036; 83880; 84439; 84443; 84481

== ENCOUNTER 2021-07-10 11:44 | Outpatient (CLI) | payer MEDICARE, OTHER ==
[2021-07-10 12:13] LABS: BASOPHILS % (AUTO) 0.8 %; EOSINOPHILS # (AUTO) 0.1 10^3/uL (0.0-0.7); EOSINOPHILS % (AUTO) 2.9 %; HCT - HEMATOCRIT 40.6 % (37.0-47.0); HGB - HEMOGLOBIN 14.2 g/dL (12.0-16.0); LYMPHOCYTES # (AUTO) 1.3 10^3/uL (1.5-3.5); LYMPHOCYTES % (AUTO) 32.7 %; MEAN PLATELET VOLUME 9.1 fL (7.9-10.8); MONOCYTES # (AUTO) 0.4 10^3/uL (0.0-1.0); MONOCYTES % (AUTO) 11.5 %; NEUTROPHILS % (AUTO) 51.8 %; PLT - PLATELET COUNT 308 10^3/uL (130-450); RED BLOOD COUNT 4.06 10^6/uL (4.20-5.40); RED CELL DISTRIBUTION WIDTH 11.7 % (12.0-15.0); WHITE BLOOD COUNT 3.8 x10^3/uL (4.8-10.8)
[2021-07-10 12:37] LABS: ESTIMATED AVERAGE GLUCOSE 105 mg/dL (70-100); HEMOGLOBIN A1c% 5.3 % (4.27-6.07)
[2021-07-10 12:45] LABS: FREE T3 3.29 pg/mL (2.5-3.9)
[2021-07-10 12:46] LABS: THYROID STIMULATING HORMONE 0.43 uIU/mL (0.34-5.60)
[2021-07-10 12:49] LABS: FREE T4 (FREE THYROXINE) 0.94 ng/dL (0.58-1.64)
[2021-07-10 12:51] LABS: ALBUMIN 4.1 g/dL (3.2-5.5); ALBUMIN/GLOBULIN RATIO 1.5 (1.0-2.2); ALKALINE PHOSPHATASE 43 IU/L (42-121); ALT ALANINE AMINOTRANSFERASE 19 IU/L (10-60); AST ASPARTATE AMINOTRANSFERASE 24 IU/L (10-42); BILIRUBIN,TOTAL 0.7 mg/dL (0.2-1.0); BUN - BLOOD UREA NITROGEN 12 mg/dL (6-20); CALCIUM 9.3 mg/dL (8.5-10.3); CARBON DIOXIDE - CO2 26 mmol/L (21-32); CHLORIDE 98 mmol/L (101-111); CHOL/HDL RATIO 2.4 (<4.4); CHOLESTEROL 235 mg/dL; CREATININE 0.4 mg/dL (0.4-1.0); GFR - MDRD 155 (>89); GLUCOSE 104 mg/dL (70-100); HDL CHOLESTEROL 100 mg/dL; LDL CHOLESTEROL,CALCULATED 124 mg/dL; LDL/HDL RATIO 1.2 (<4.4); POTASSIUM 4.2 mmol/L (3.5-5.0); SODIUM 135 mmol/L (135-145); TOTAL PROTEIN 6.9 g/dL (6.7-8.2); TRIGLYCERIDES 56 mg/dL; VLDL CHOLESTEROL 11 mg/dL
== END 2021-07-10 11:45 | disposition home or self-care (01) ==
LOC: LAB 11:44
PROVIDERS: ATTEND Family Medicine
DX: E87.1 Hypo-osmolality and hyponatremia (principal); R73.9 Hyperglycemia, unspecified; R63.6 Underweight; Z72.0 Tobacco use; F41.9 Anxiety disorder, unspecified; F32.A Depression, unspecified; M81.0 Age-related osteoporosis without current pathological fracture; E78.5 Hyperlipidemia, unspecified
CPT/HCPCS: 36415; 80053; 80061; 83036; 83721; 83880; 84439; 84443; 84481; 85025

== ENCOUNTER 2022-05-28 13:38 | Outpatient (CLI) | payer MEDICARE, OTHER ==
--- NOTE | 2022-05-29 09:16 | Mammography Report ---
BILATERAL DIGITAL SCREENING MAMMOGRAM 3D/2D: 05/28/2022 CLINICAL: Routine screening. Personal history of left breast cancer. Comparison is made to exams dated: 09/04/2020 mammogram, 09/04/2018 mammogram, 08/20/2017 mammogram, 2015 mammogram, 06/15/2014 mammogram, and 05/07/2013 mammogram - [facility]. Both breasts are almost entirely fatty (category a/<25% glandular tissue). There are benign calcifications in both breasts. There also are benign vascular calcifications in th e left breast. Additionally, there are benign post operative findings in the left breast. No significant masses, calcifications, or other findings are seen in either breast. There has been no significant interval change. IMPRESSION: BENIGN There is no mammographic evidence of malignancy. A 1 year screening mammogram is recommended. This exam was interpreted at Station ID: [id number]. NOTE: For mammograms, a report in lay terms will be sent to the patient. Approximately 15% of breast malignancies will not be visualized mammographically. In the management of a palpable breast mass, a negative mammogram must not discourage biopsy of a clinically suspicious lesion. Electronically Signed By: Travon Esposito M.D. acr/penrad:05/28/2022 15:26:46 ACR BI-RADS Category 2: Benign Finding(s) 3342F PARENCHYMAL PATTERN: (F) - The breast(s) demonstrate(s) diffuse fatty replacement. BI-RADS CATEGORY: (2) - 2 RECOMMENDATION: (ANNUAL) - Recommend routine annual screening mammography. [id number] 1 year screening LATERALITY: (B)
== END 2022-05-28 13:39 | disposition home or self-care (01) ==
LOC: DI 13:38
DX: Z12.31 Encounter for screening mammogram for malignant neoplasm of breast (principal); Z85.3 Personal history of malignant neoplasm of breast

== ENCOUNTER 2023-06-12 13:56 | Emergency (ER) | payer MEDICARE, OTHER ==
--- NOTE | 2023-06-12 14:28 | ED Physician Documentation ---
History of Present Illness - Stated complaint Stated Complaint: BACK PX - Chief complaint Chief Complaint: Back Pain - History obtained from History obtained from: Patient, Family - Additonal information Additional information: The patient comes to the emergency department chief complaint of severe pain in her right lumbosacral area and SI joint area for the last approximately 6 days. She states there is no particular trigger for this and she did not feel like she had done anything different than usual. She has a history of osteoporosis and some chronic low back pain for which she sees a chiropractor. She states she just had a similar thing happen on the left, but it was more gradual onset and responded quickly to treatment with her chiropractor. This left-sided pain had been gone less than a week when she had sudden onset of the right-sided pain. She states sometimes she gets pain shooting down her leg on the right. She denies any numbness or tingling. No leg weakness. No loss of bowel or bladder control. She states it hurts no matter what positions she is in and she just feels like she cannot take it anymore. She has been trying extra strength Tylenol at home but it does not seem to be working. No other complaints at this time. She has a history of breast cancer but that has been in remission for a long time. 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 DOCKING MASTER: Other HEENT: Cataracts - Present Medications Home Medications: Ambulatory Orders Medication Instructions Recorded Confirmed Alprazolam [Xanax] 0.25 mg PO DAILY 05/19/13 01/16/17 Calcium Carbonate [Calcium] 1,200 mg PO DAILY 05/19/13 01/16/17 Cholecalciferol (Vitamin D3) 1,600 mg PO DAILY 05/19/13 01/16/17 [Vitamin D] Eszopiclone [Lunesta] 1 mg PO DAILY 05/19/13 01/16/17 Lactobacillus Acidophilus 1 each PO DAILY 05/19/13 01/16/17 [Acidophilus] Latanoprost [Xalatan] 2.5 ml OP DAILY 05/19/13 01/16/17 Timolol 0.5% Ophth Drops [Timoptic] 1 drops LEFTEYE DAILY 05/19/13 01/16/17 Ubidecarenone [Co Q-10] 10 mg PO 05/19/13 05/19/13 Vitamin B Complex [B Complex] 1 each PO DAILY 05/19/13 01/16/17 Diphenoxylate/Atropine [Lomotil] 1 each PO QID #20 tablet 10/03/16 01/16/17 Ondansetron Odt [Zofran] 4 mg TL Q6H PRN #15 tablet 10/03/16 01/16/17 HYDROcod/ACETAM 5/325 [Prospect 5/325] 1 - 2 tablet PO Q6H PRN #20 tablet 06/12/23 - Allergies Allergies/Adverse Reactions: Allergies Allergy/AdvReac Type Severity Reaction Status Date / Time sertraline HCl * AdvReac Intermediate Nausea Verified 06/12/23 14:04 [From Zoloft] - Social History Does the pt smoke?: Yes Smoking Status: Current every day smoker Does the pt drink ETOH?: No Does the pt have substance abuse?: Yes - Immunizations Immunizations are current?: No - POLST Patient has POLST: No PD ED PE NORMAL - Vitals Vital signs reviewed: Yes - General General: Alert and oriented X 3, No acute distress, Well developed/nourished, Other (The patient appears uncomfortable and is occasionally tearful, but otherwise in no apparent distress.) - HEENT HEENT: Atraumatic, PERRL, EOMI, Moist mucous membranes - Neck Neck: Supple, no meningeal sign - Cardiac Cardiac: RRR, No murmur - Respiratory Respiratory: No respiratory distress, Clear bilaterally - Abdomen Abdomen: Soft, Non tender, Non distended - Back Back: No spinal TTP - Derm Derm: Normal color, Warm and dry, No rash - Extremities Extremities: No deformity, Other (Tenderness palpation over right SI area and for several centimeters superior. No spinal step-off.) - Neuro Neuro: Alert and oriented X 3, No motor deficit, No sensory deficit, Other (The patient is able to stand and transfer herself, as well as walk, but she does all of it slowly and appears slightly unsteady.) - Psych Psych: Normal mood, Normal affect Results - Vitals Vitals: Vital Signs - 24 hr 06/12/23 06/12/23 13:57 17:07 Temperature 36.4 C L Heart Rate 100 84 Respiratory 17 16 Rate Blood Pressure 139/70 H 147/84 H O2 Saturation 100 99 Oxygen O2 Source Room air - Rads (name of study) CT lumbar spine Relevant Findings:: Final report received, See rad report (No acute findings.) CT pelvis Relevant Findings:: Final report received, See rad report (Nondisplaced right superior sacral fracture.) PD Medical Decision Making - ED course Complexity details: reviewed results, re-evaluated patient, considered differential, d/w patient, d/w family ED course: I discussed with the patient that we would work her up with a CT scan of her low spine and pelvis and treat her symptomatically in the emergency department. I have ordered Toradol, Dilaudid, and Decadron for her. The patient was found to be greatly improved on reevaluation. Her CT scans showed a small nondisplaced superior right sacral fracture which is undoubtedly the cause of her pain. I discussed this with the patient and her . I have sent a prescription for Vicodin for her. The patient has declined the offer of a walker, stating that pushing down on anything even with her upper extremity just makes the area hurt more. We have discussed that there is not a particular Treatment for this condition and that she will recover over the next couple of months. We discussed the need for follow-up with her primary doctor to discuss whether physical therapy would be helpful. Departure - Departure Disposition: 01 Home, Self Care Clinical Impression: Sacral fracture, closed Qualifiers: Encounter type: initial encounter Zone of sacrum fracture: unspecified portion of sacrum Qualified Code(s): S32.10XA - Unspecified fracture of sacrum, initial encounter for closed fracture Condition: Stable Instructions: ED Fx Coccyx, ED Sacroiliitis Prescriptions: HYDROcod/ACETAM 5/325 [Prospect 5/325] 1 - 2 tablet PO Q6H PRN #20 tablet PRN Reason: Pain Comments: Your CT scans showed a small crack in the right side of your sacral bone. It is unclear exactly how this happened since she did not have any distinct trauma. This may be a stress fracture in light of your osteoporosis. Unfortunately, there is no direct treatment for sacral fracture and it really just takes time to heal. You may use assistive walking devices if you feel like these are helpful. A prescription for pain medication has been electronically transmitted to the [facility] here in [place]. Please pick this up and take it as needed, along with ibuprofen. If you take any doses of Tylenol along with the pain medicine, please make sure you separate the dose of Tylenol from the dose of Vicodin by at least 4 hours to make sure you are not taking too much Tylenol. Please follow-up with your primary care physician as needed. You might find it useful to do some physical therapy as you heal from this injury. Discharge Date/Time: 06/12/23 17:08
[2023-06-12] MEDS: KETOROLAC 60 MG/2 ML VIAL IM STA (14:41)
[2023-06-12] MEDS: DEXAMETHASONE 10 MG/ML VIAL IM STA (14:42)
[2023-06-12] MEDS: HYDROmorphone 1 MG/ML CARPUJECT IM STA (14:42)
--- NOTE | 2023-06-12 16:09 | CT Report ---
PROCEDURE: Lumbar Spine WO INDICATIONS: lumbosacral pain on R TECHNIQUE: Noncontrast 3 mm thick sections acquired from the T12 level to the sacrum. Sagittal and coronal refo rmats were constructed. For radiation dose reduction, the following was used: automated exposure co ntrol, adjustment of mA and/or kV according to patient size. COMPARISON: None. FINDINGS: Image quality: Excellent. Bones: There is normal bony alignment. No acute vertebral body compression fractures. No suspiciou s lytic or blastic bony lesions. Central spinal caliber is of normal overall caliber. No pars defec ts. Multilevel degenerative disc and facet disease. Soft tissues: No retroperitoneal masses or hematomas. Visualized aorta is normal in caliber. IMPRESSION: No acute fracture. No osseous lesion. If symptoms and/or clinical suspicion for pathology continue, f urther assessment with repeat MRI bone scan may be helpful for further assessment. Reviewed by: Liliam Lyons MD on 06/12/2023 4:08 PM PST Approved by: Liliam Lyons MD on 06/12/2023 4:08 PM PST Station ID: [id number]
--- NOTE | 2023-06-12 16:11 | CT Report ---
PROCEDURE: Pelvis WO INDICATIONS: SI pain, severe, R side TECHNIQUE: Noncontrast 3 mm axial sections acquired through the bony pelvis, with coronal and sagittal reformatt ing. For radiation dose reduction, the following was used: automated exposure control, adjustment of mA and/or kV according to patient size. COMPARISON: None. FINDINGS: Image quality: Excellent. Bones: There is vague linear lucency traversing the right sacral alar superiorly. Soft tissues: Visualized bowel loops and vasculature are within normal limits. IMPRESSION: Minimally displaced right superior sacral fracture. Reviewed by: Liliam Lynn MD on 06/12/2023 4:10 PM PST Approved by: Liliam Lynn MD on 06/12/2023 4:10 PM PST Station ID: [id number]
[2023-06-12 17:17] VITALS: BP 147/84; O2SAT 99
== END 2023-06-12 17:08 | disposition home or self-care (01) ==
LOC: ED 13:56
DX: S32.10XA Unspecified fracture of sacrum, initial encounter for closed fracture (principal); X58.XXXA Exposure to other specified factors, initial encounter; J44.9 Chronic obstructive pulmonary disease, unspecified; F17.200 Nicotine dependence, unspecified, uncomplicated; Z79.899 Other long term (current) drug therapy
CPT/HCPCS: 72131; 72192; 96372; 99283; 99284; J1170

== ENCOUNTER 2023-06-28 13:55 | Outpatient (CLI) | payer MEDICARE, OTHER ==
--- NOTE | 2023-06-30 19:51 | MRI Report ---
PROCEDURE: Lumbar Spine WO INDICATIONS: SACRAL FX TECHNIQUE: Noncontrast sagittal T1 spin echo and T2 fast echo, sagittal STIR, axial T1 and T2 fast spin echo thr ough the lumbar spine. In cases with scoliosis, additional coronal T2 fast spin echo may be performe d. COMPARISON: Correlation is made with prior CT examinations, 06/12/2023. FINDINGS: Image quality: Motion artifact is noted. Alignment and Curvature: Mild dextroconvex scoliotic curvature is seen. Minimal retrolisthesis can b e seen at L3-L4. Mild grade 1 anterolisthesis can be seen at L4-L5. Bone Marrow: Marrow is of normal overall signal. An acute fracture can be seen of the S2 level. No a dditional focal bony abnormalities are seen to suggest recent fracture or contusion. Spinal Cord: Conus medullaris terminates at the L1 level. Visualized cord demonstrates normal signa l and size. Paraspinous Soft Tissues: No paravertebral masses. T12-L1: Normal in appearance. L1-L2: No significant abnormality is seen. L2-L3: Mild loss of disc height and disc signal are seen. Mild disc bulge is seen. A superimp osed central disc protrusion is seen. Mild facet hypertrophy is seen. There is moderate left-sided a nd no right-sided neuroforaminal narrowing. Mild central canal narrowing is seen. L3-L4: The disc height is well-preserved. There is loss of disc signal seen. Moderate disc bulge is seen, which is eccentric to the left. There is a mild central disc protrusion. Mild to moderate face t hypertrophy can be seen. There is moderate left-sided and mild right-sided neuroforaminal narrowing . Minimal central canal narrowing is seen. L4-L5: Moderate loss of disc height and signal are seen. Reactive marrow endplate changes are seen , which are on hypointense on T1-weighted and hyperintense T2-weighted imaging, with associated inc reased STIR signal. These imaging findings are most consistent with endplate edema (Modic type 1 colby ge). Moderate disc bulge is seen at this level. A superimposed central disc protrusion is seen. At l east moderate facet hypertrophy can be seen. There is fluid seen within the left facet joint. There i s moderate left-sided and moderate to severe right-sided neuroforaminal narrowing. There is a degree of compression seen upon the exiting right L4 nerve root. Mild to moderate central canal narrowing is seen. L5-S1: Moderate loss of disc height and signal are seen. Moderate disc bulge is seen at this level . A superimposed central disc protrusion is seen. There is moderate right-sided and mild left-sided f acet hypertrophy. There is moderate left-sided and moderate to severe right-sided neuroforaminal narr owing. There is a degree of compression seen upon the exiting right L5 nerve root. Mild central mehrdad l narrowing is seen. Multiple Tarlov cysts can be seen involving the sacrum, with the largest seen at the S2-S3 level. IMPRESSION: The previously seen S2 level fracture is again seen. No recent fractures of the lumbar spine can be s een. There is dextroconvex scoliotic curvature and multiple levels of underlying degenerative change can b e seen. Reviewed by: Chucky Bell MD on 06/30/2023 6:49 PM [place] Approved by: Chucky Bell MD on 06/30/2023 6:49 PM [facility] Station ID: [id number]
== END 2023-06-28 13:56 | disposition home or self-care (01) ==
LOC: DI 13:55
PROVIDERS: ATTEND Registered Nurse
DX: M48.58XA Collapsed vertebra, not elsewhere classified, sacral and sacrococcygeal region, initial encounter for fracture (principal); M51.36 Other intervertebral disc degeneration, lumbar region; M48.061 Spinal stenosis, lumbar region without neurogenic claudication; M51.26 Other intervertebral disc displacement, lumbar region; M47.26 Other spondylosis with radiculopathy, lumbar region; M51.17 Intervertebral disc disorders with radiculopathy, lumbosacral region; M47.27 Other spondylosis with radiculopathy, lumbosacral region; M48.07 Spinal stenosis, lumbosacral region; M41.9 Scoliosis, unspecified

== ENCOUNTER 2023-12-16 11:15 | Outpatient (CLI) | payer MEDICARE, OTHER ==
[2023-12-16 11:36] LABS: BASOPHILS % (AUTO) 0.5 %; EOSINOPHILS # (AUTO) 0.1 10^3/uL (0.0-0.7); EOSINOPHILS % (AUTO) 1.6 %; HCT - HEMATOCRIT 41.3 % (37.0-47.0); LYMPHOCYTES # (AUTO) 1.3 10^3/uL (1.5-3.5); LYMPHOCYTES % (AUTO) 35.3 %; MEAN CORPUSCULAR HEMOGLOBIN 34.4 pg (27.0-31.0); MEAN CORPUSCULAR HGB CONC 33.9 g/dL (32.0-36.0); MEAN CORPUSCULAR VOLUME 101.5 fL (81.0-99.0); MEAN PLATELET VOLUME 8.9 fL (7.9-10.8); MONOCYTES # (AUTO) 0.4 10^3/uL (0.0-1.0); MONOCYTES % (AUTO) 10.8 %; NEUTROPHILS # (AUTO) 1.9 10^3/uL (1.5-6.6); NEUTROPHILS % (AUTO) 51.5 %; PLT - PLATELET COUNT 327 10^3/uL (130-450); RED BLOOD COUNT 4.07 10^6/uL (4.20-5.40); RED CELL DISTRIBUTION WIDTH 11.9 % (12.0-15.0); WHITE BLOOD COUNT 3.7 x10^3/uL (4.8-10.8)
[2023-12-16 11:52] LABS: ALBUMIN 4.5 g/dL (3.2-5.5); ALBUMIN/GLOBULIN RATIO 1.7 (1.0-2.2); ALKALINE PHOSPHATASE 43 IU/L (42-121); ALT ALANINE AMINOTRANSFERASE 10 IU/L (10-60); AST ASPARTATE AMINOTRANSFERASE 16 IU/L (10-42); BILIRUBIN,TOTAL 0.6 mg/dL (0.2-1.0); BUN - BLOOD UREA NITROGEN 9 mg/dL (6-20); CALCIUM 9.5 mg/dL (8.5-10.3); CARBON DIOXIDE - CO2 26 mmol/L (21-32); CHLORIDE 99 mmol/L (101-111); CHOL/HDL RATIO 2.2 (<4.4); CHOLESTEROL 220 mg/dL; CREATININE 0.6 mg/dL (0.6-1.3); GFR - MDRD 96 (>89); GLUCOSE 100 mg/dL (74-104); HDL CHOLESTEROL 100 mg/dL; LDL CHOLESTEROL,CALCULATED 106 mg/dL; LDL/HDL RATIO 1.1 (<4.4); POTASSIUM 4.1 mmol/L (3.5-4.5); SODIUM 133 mmol/L (135-145); TOTAL PROTEIN 7.2 g/dL (6.4-8.9); TRIGLYCERIDES 71 mg/dL; VLDL CHOLESTEROL 14 mg/dL
[2023-12-16 11:55] LABS: ESTIMATED AVERAGE GLUCOSE 94 mg/dL (70-100); HEMOGLOBIN A1c% 4.9 % (4.27-6.07)
[2023-12-16 12:05] LABS: THYROID STIMULATING HORMONE 0.99 uIU/mL (0.34-5.60)
== END 2023-12-16 11:16 | disposition home or self-care (01) ==
LOC: LAB 11:15
PROVIDERS: ATTEND Family Medicine
DX: F40.10 Social phobia, unspecified (principal); F17.200 Nicotine dependence, unspecified, uncomplicated; G47.9 Sleep disorder, unspecified; R73.9 Hyperglycemia, unspecified; E55.9 Vitamin D deficiency, unspecified; R63.6 Underweight; J44.9 Chronic obstructive pulmonary disease, unspecified
CPT/HCPCS: 36415; 80053; 80061; 82306; 83036; 83721; 84443; 85025